=== PATIENT | female | born 1985 | race Asian ===

== ENCOUNTER 2019-12-29 18:56 | Emergency (ER) | payer BC ==
[2019-12-29 19:07] VITALS: BP 135/88; PULSE 86; TEMP 97.7; BMI 22.1
[2019-12-29] MEDS ORDERED: METOCLOPRAMIDE HCL INJECTION 10 MG/2 ML VIAL IVPB ONE (19:07)
[2019-12-29] MEDS ORDERED: ACETAMINOPHEN 1000 MG/100 ML VIAL (NON FORMULARY) IVPB ONE (19:07)
[2019-12-29] MEDS ORDERED: SODIUM CHLORIDE 1,000 ML IV STA (19:07)
--- NOTE | 2019-12-29 19:07 | PDOC ---
Rapid Medical Evaluation Medical Evaluation: I have performed a brief in-person evaluation of this patient. The patient presents with a chief complaint of: c/o generalized POLLACK since 1 PM along emesis; does not normally suffer with headaches; took 1000 mg of Tylenol and 400 mg of Motrin; states POLLACK is severe along with neck pain Pertinent physical exam findings: In NAD, no focal deficits I have ordered the following: head CT, IVF, Tylenol, Reglan The patient will proceed to the ED for further evaluation. 12/29/19 19:04
[2019-12-29] MEDS ORDERED: ACETAMINOPHEN INJECTION 100 ML IVPB ONE (19:32)
[2019-12-29] MEDS ORDERED: METOCLOPRAMIDE HCL INJECTION 10 MG/2 ML VIAL ONE (19:32)
[2019-12-29 20:24] LABS: BASO % 0.5 % (0-2.0); EOS % 0.3 % (0-4.5); HEMATOCRIT 36.2 % (32.4-45.2); LYMPH % 21.2 % (8-40); MCH 25.9 pg (25.7-33.7); MCHC 33.2 g/dl (32.0-36.0); MEAN PLT VOLUME 8.6 fl (7.5-11.1); MONO % 3.7 % (3.8-10.2); NEUT % 74.3 % (42.8-82.8); PLATELET COUNT 279 K/MM3 (134-434); RBC 4.63 M/mm3 (3.60-5.2); RDW 14.7 % (11.6-15.6); WHITE BLOOD COUNT 10.6 K/mm3 (4.0-10.0)
[2019-12-29 21:00] LABS: ALBUMIN 3.8 g/dl (3.4-5.0); ALK PHOS 65 U/L (45-117); ANION GAP 8 MMOL/L (8-16); BILIRUBIN,TOTAL 0.4 mg/dL (0.2-1); BLOOD UREA NITROGEN 11.4 mg/dL (7-18); CALCIUM 9.1 mg/dL (8.5-10.1); CHLORIDE 105 mmol/L (98-107); CO2 26 mmol/L (21-32); CREATININE 0.5 mg/dL (0.55-1.3); GLUCOSE,RANDOM 94 mg/dL (74-106); POTASSIUM 4.1 mmol/L (3.5-5.1); SGOT/AST 20 U/L (15-37); SGPT/ALT 24 U/L (13-61); SODIUM 139 mmol/L (136-145); TOT PROT 8.2 g/dl (6.4-8.2)
--- NOTE | 2019-12-29 21:29 | PDOC ---
History of Present Illness - General Chief Complaint: Headache Stated Complaint: HEADACHE/VOMITING Time Seen by Provider: 12/29/19 19:03 History Source: Patient Exam Limitations: No Limitations - History of Present Illness Initial Comments: 12/29/19 21:35 34 yo F with a hx of migraines presents to the emergency department with global headache with abrupt onset at 1 pm. Per the patient, she was at work when the onset of the headache occurred. It was atraumatic, sudden in onset, and located throughout the cranium without radiation. No FND and visual disturbance. Denies the following: fevers, chills, lightheadedness, dizziness, chest pain, SOB, neck pain. Endorses 2x vomiting episodes without hematemesis. Denies unsteady gait. Allergies: NKDA Past History - Past Medical History Allergies/Adverse Reactions: Allergies Allergy/AdvReac Type Severity Reaction Status Date / Time No Known Allergies Allergy Verified 12/29/19 19:07 COPD: No - Psycho Social/Smoking Cessation Hx Smoking History: Never smoked Review of Systems - Review of Systems Able to Perform ROS?: Yes Is the patient limited Nigerien proficient: No Constitutional: No: Chills, Diaphoresis, Fever, Weakness HEENTM: No: Eye Pain, Blurred Vision, Recent change in vision, Double Vision, Ear Pain, Nose Pain, Throat Pain, Mouth Pain Respiratory: No: Cough, Shortness of Breath, Hemoptysis Cardiac (ROS): No: Chest Pain, Lightheadedness, Palpitations, Chest Tightness ABD/GI: Yes: Nausea. No: Constipated, Diarrhea, Rectal Bleeding, Vomiting, Tarry Stools : No: Burning, Dysuria, Hematuria, Incontinence Musculoskeletal: No: Back Pain, Joint Pain, Neck Pain Integumentary: No: Bruising, Erythema, Rash Neurological: Yes: Headache. No: Numbness, Tingling, Tremors Psychiatric: No: Change in Appetite Endocrine: No: Unexplained Weight Loss Hematologic/Lymphatic: No: Anemia *Physical Exam - Vital Signs Last Vital Signs Temp Pulse Resp BP Pulse Ox 97.7 F 86 18 135/88 98 12/29/19 19:04 12/29/19 19:04 12/29/19 19:04 12/29/19 19:04 12/29/19 19:04 - Physical Exam General Appearance: Yes: Nourished, Appropriately Dressed. No: Apparent Distress, Intoxicated HEENT: positive: EOMI, PIERRE, Normal ENT Inspection, Normal Voice, Symmetrical, TMs Normal, Pharynx Normal, Hearing Grossly Normal. negative: Pale Conjunctivae , Scleral Icterus (R), Scleral Icterus (L), Muffled/Hoarse voice, Pharyngeal Erythema, Tonsillar Exudate, Tonsillar Erythema, Excessive drooling Neck: positive: Trachea midline, Supple. negative: Tender, Lymphadenopathy (R) , Lymphadenopathy (L), Tender lateral, Tender midline Respiratory/Chest: positive: Lungs Clear, Normal Breath Sounds. negative: Chest Tender, Respiratory Distress, Accessory Muscle Use Cardiovascular: positive: Regular Rhythm, Regular Rate, S1, S2. negative: Systolic Murmur Gastrointestinal/Abdominal: positive: Normal Bowel Sounds, Flat, Soft. negative : Tender, Distended, Guarding, Rebound, Tenderness Lymphatic: negative: Adenopathy Musculoskeletal: positive: Normal Inspection. 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, Fully Oriented, Alert, Normal Mood/ Affect, Motor Strength 5/5 ED Treatment Course - LABORATORY CBC & Chemistry Diagram: 12/29/19 20:00 12/29/19 20:00 - ADDITIONAL ORDERS Additional order review: Laboratory Results 12/29/19 20:00 Sodium 139 Potassium 4.1 Chloride 105 Carbon Dioxide 26 Anion Gap 8 BUN 11.4 Creatinine 0.5 L Est GFR (CKD-EPI)AfAm 148.42 Est GFR (CKD-EPI)NonAf 128.06 Random Glucose 94 Calcium 9.1 Total Bilirubin 0.4 AST 20 ALT 24 Alkaline Phosphatase 65 Total Protein 8.2 Albumin 3.8 Beta HCG, Quant < 1.0 12/29/19 20:00 RBC 4.63 MCV 78.0 L MCHC 33.2 RDW 14.7 MPV 8.6 Neutrophils % 74.3 Lymphocytes % 21.2 Monocytes % 3.7 L Eosinophils % 0.3 Basophils % 0.5 - RADIOLOGY Radiology Studies Ordered: Category Date Time Status HEAD CT WITHOUT CONTRAST [CT] Stat CT Scan 12/29/19 19:56 Taken - Medications Given in the ED: ED Medications Discontinued Medications Generic Name Dose Route Start Last Admin Trade Name Freq PRN Reason Stop Dose Admin Acetaminophen 1,000 mg 12/29/19 19:07 12/29/19 20:15 Ofirmev Injection - IVPB 12/29/19 19:08 1,000 mg ONCE ONE Administration Diphenhydramine HCl 50 mg 12/29/19 20:48 12/29/19 21:04 Benadryl Injection - IVPB 12/29/19 20:49 50 mg ONCE ONE Administration Sodium Chloride 1,000 mls @ 1,000 mls/hr 12/29/19 19:07 12/29/19 20:15 Normal Saline - IV 12/29/19 20:06 1,000 mls/hr ASDIR STA Administration Metoclopramide HCl 10 mg 12/29/19 19:07 12/29/19 20:16 Reglan Injection - IVPB 12/29/19 19:08 10 mg ONCE ONE Administration Medical Decision Making - Medical Decision Making 12/29/19 22:40 34 yo F with a hx of migraines presents to the emergency department with global headache with abrupt onset at 1 pm. Per the patient, she was at work when the onset of the headache occurred. Initial vitals: Initial Vital Signs Temp Pulse Resp BP Pulse Ox 97.7 F 86 18 135/88 98 12/29/19 19:04 12/29/19 19:04 12/29/19 19:04 12/29/19 19:04 12/29/19 19:04 Work up: ddx: tension headache vs cluster vs migraine vs sinusitis vs URI. Unlikely to be SAH due to severity, lack of familial hx, and features not consistent with SAH. Laboratory Tests 12/29/19 12/29/19 20:00 20:00 WBC 10.6 H RBC 4.63 Hgb 12.0 Hct 36.2 MCV 78.0 L MCH 25.9 MCHC 33.2 RDW 14.7 Plt Count 279 MPV 8.6 Absolute Neuts (auto) 7.9 Neutrophils % 74.3 Lymphocytes % 21.2 Monocytes % 3.7 L Eosinophils % 0.3 Basophils % 0.5 Nucleated RBC % 0 Sodium 139 Potassium 4.1 Chloride 105 Carbon Dioxide 26 Anion Gap 8 BUN 11.4 Creatinine 0.5 L Est GFR (CKD-EPI)AfAm 148.42 Est GFR (CKD-EPI)NonAf 128.06 Random Glucose 94 Calcium 9.1 Total Bilirubin 0.4 AST 20 ALT 24 Alkaline Phosphatase 65 Total Protein 8.2 Albumin 3.8 Beta HCG, Quant < 1.0 labs within normal limits CT sinuses show no acute process CT head shows 0.4 cm process either calcified meningioma or osteoma with recommendation for follow up CT. The patient denies having a previous head CT and states she will follow up with her PMD to arrange a neurology consult. She declined for a neurology referral from our service. She had significant improvement of her symptoms with interventions. Patient to be discharged. Able to ambulate on her own volition Dispo: Discharge Discharge - Discharge Information Problems reviewed: Yes Clinical Impression/Diagnosis: Migraine Condition: Improved Disposition: HOME - Admission No - Follow up/Referral Referrals: ON STAFF,NOT [Primary Care Provider] - Nova Gaitan MD [Non Staff, Medical] - - Patient Discharge Instructions Patient Printed Discharge Instructions: DI for Migraine, DI for Sinus Headache , DI for Headache Additional Instructions: You were seen in the emergency department for your headache. Please follow up with your primary medical doctor within 1 week after discharge for follow up care and management. Please return to the emergency department if you have worsening symptoms. Thank you. Please make sure to follow up with the neurologist for CT head findings. - Post Discharge Activity
--- NOTE | 2019-12-29 23:05 | PDOC ---
Documentation entered by Emily Krause SCRIBE, acting as scribe for Allison Cornejo MD. Allison Corneoj MD: This documentation has been prepared by the benibe, Emily Krause SCRIBE, under my direction and personally reviewed by me in its entirety. I confirm that the documentation accurately reflects all work, treatment, procedures, and medical decision making performed by me. Attending Attestation - Resident Resident Name: BhavyaTonny - ED Attending Attestation I have performed the following: I have examined & evaluated the patient, The case was reviewed & discussed with the resident, I agree w/resident's findings & plan, Exceptions are as noted - HPI HPI: 12/29/19 21:01 The patient is a 34-year-old female with no significant past medical history who presents to the emergency department with a headache. The patient reports a sudden onset of a headache around 1:00 pm today, associated with x2 episodes of vomiting. The patient reports taking Tylenol and Motrin for the symptoms without relief. - Physicial Exam PE: 12/29/19 21:54 slender,conversant 34 yo female p/w headache associated with nausea and vomiting head ncat neck supple lungs cta b/l cvs [id number] abdomen nontender skin warm and dry neuro axox3,ambulatory, no ataxia, no dysnetria,no drift,motor strength 5.5 b/l - Medical Decision Making 12/29/19 23:04 ct scan head : no acute intracranial pathology ct scan sinuses: well aerated sinuses headache resolved d/c home
== END 2019-12-29 22:41 | disposition home or self-care (01) ==
LOC: JERFT 18:56
PROC: 3E033NZ Introduction of Analgesics, Hypnotics, Sedatives into Peripheral Vein, Percutaneous Approach (ICD-10-PCS; principal; 2019-12-29)
PROC: 3E033GC Introduction of Other Therapeutic Substance into Peripheral Vein, Percutaneous Approach (ICD-10-PCS; 2019-12-29)
PROC: 3E033GC Introduction of Other Therapeutic Substance into Peripheral Vein, Percutaneous Approach (ICD-10-PCS; 2019-12-29)
DX: G43.909 Migraine, unspecified, not intractable, without status migrainosus (principal)
CPT/HCPCS: 36415; 70450-TC; 70486-TC; 80053; 84702; 85025; 99285-25; J0131; J7030